=== PATIENT | male | born 1975 | race Caucasian/White ===

== ENCOUNTER 2016-07-25 07:50 | Emergency (ER) | payer SELFPAY ==
--- NOTE | 2016-07-25 08:01 | ERPHSYRPT ---
- History of Present Illness Time Seen by Provider: 07/25/16 08:01 Historian: patient Exam Limitations: no limitations Physician History: 41 y/o male comes to the ER with complaints of abdominal cramping, nausea, vomiting and diarrhea since Thursday. Pt also reports having substernal chest pain during this time. Pt describes the pain as sharp, intermittent, 6/10 and pt has not taken any pain meds. Pt mentions having over 10 episodes of vomiting and diarrhea. Pt arrives to the ER shaking with his last drink being last night. Pt denies any fever, chills, cough, shortness of breath, dizziness or palpitations. Timing/Duration: day(s) (3 days) Activities at Onset: none Quality: pressure Location: substernal Chest Pain Radiation: no radiation Severity of Pain-Max: moderate Severity of Pain-Current: moderate Modifying Factors: Improves With: nothing Associated Symptoms: denies symptoms Prior Chest Pain/Cardiac Workup: no prior chest pain Nitro Today/Relief: no nitro taken today Aspirin Treatment Today: no aspirin today Allergies/Adverse Reactions: coconut Allergy (Verified 07/25/16 08:02) Home Medications: No Reportable Medications [No Reported Medications] 07/25/16 [History] Hx Tetanus, Diphtheria Vaccination/Date Given: No Hx Influenza Vaccination/Date Given: No Hx Pneumococcal Vaccination/Date Given: No - Review of Systems Constitutional: No Fever, No Chills Eyes: No Symptoms Ears, Nose, & Throat: No Symptoms Respiratory: No Cough, No Dyspnea Cardiac: Chest Pain, No Edema, No Syncope Abdominal/Gastrointestinal: Abdominal Pain, Nausea, Vomiting, Diarrhea Genitourinary Symptoms: No Dysuria Musculoskeletal: No Back Pain, No Neck Pain Skin: No Rash Neurological: No Dizziness, No Focal Weakness, No Sensory Changes Psychological: No Symptoms Endocrine: No Symptoms All Other Systems: Reviewed and Negative - Past Medical History Pertinent Past Medical History: No - Past Surgical History Past Surgical History: No - Social History Smoking Status: Never smoker Exposure to second hand smoke: No Alcohol Use: Chronic Drug Use: none Patient Lives Alone: No - Physical Exam General Appearance: no apparent distress, alert Eye Exam: PERRL/EOMI, eyes nml inspection Ears, Nose, Throat Exam: normal ENT inspection, moist mucous membranes Neck Exam: normal inspection, non-tender, supple, full range of motion Respiratory Exam: normal breath sounds, lungs clear, No respiratory distress Cardiovascular Exam: regular rate/rhythm, normal heart sounds, normal peripheral pulses Gastrointestinal/Abdomen Exam: soft, normal bowel sounds, No tenderness, No mass Back Exam: normal inspection, No CVA tenderness, No vertebral tenderness Extremity Exam: normal inspection, normal range of motion Neurologic Exam: alert, oriented x 3, cooperative, normal mood/affect, sensation nml, No motor deficits Skin Exam: normal color, warm, dry - Course EKG Interpreted by Me: RATE, Sinus Rhythm, NORMAL AXIS, NORMAL INTERVALS, NORMAL QRS (HR 62) Ordered Tests: Active Orders 24 hr Category Date Time Status [employer] STAT Care 07/25/16 08:02 Active EKG-ER Only STAT Care 07/25/16 08:02 Active EKG-ER Only STAT Care 07/25/16 08:08 Inactive IV Insertion STAT Care 07/25/16 08:02 Active Pulse Oximetry (ED) STAT Care 07/25/16 08:02 Active CHEST 2 VIEWS (PA AND LAT) Stat Exams 07/25/16 08:10 Completed CBC W DIFF Stat Lab 07/25/16 08:13 Completed CMP Stat Lab 07/25/16 08:13 Completed Ethyl Alcohol,Urine Stat Lab 07/25/16 08:39 Results TROPONIN Stat Lab 07/25/16 08:13 Completed Urine Triage Profile Stat Lab 07/25/16 08:39 Completed Medication Summary Discontinued Medications Generic Name Dose Route Start Last Admin Trade Name Freq PRN Reason Stop Dose Admin Acetaminophen 1,000 mg 07/25/16 09:16 Tylenol Extra Strength 500 Mg PO 07/25/16 09:17 STAT ONE Aspirin 81 mg 07/25/16 08:11 07/25/16 08:25 Baby Aspirin 81 Mg Chew PO 07/25/16 08:12 81 mg STAT ONE Administration Aspirin Confirm 07/25/16 08:18 Baby Aspirin 81 Mg Chew Administered 07/25/16 08:19 Dose 81 mg .ROUTE .STK-MED ONE Sodium Chloride 1,000 mls @ 999 mls/hr 07/25/16 08:10 07/25/16 08:25 Sodium Chloride 0.9% 1000 Ml IV 07/25/16 09:10 999 mls/hr .Q1H1M STA Administration Sodium Chloride Confirm 07/25/16 08:18 Sodium Chloride 0.9% 1000 Ml Administered 07/25/16 08:19 Dose 1,000 mls @ ud .ROUTE .STK-MED ONE Ondansetron HCl 4 mg 07/25/16 08:10 07/25/16 08:25 Zofran 4 Mg/2 Ml Vial IV 07/25/16 08:11 4 mg STAT ONE Administration Ondansetron HCl Confirm 07/25/16 08:18 Zofran 4 Mg/2 Ml Vial Administered 07/25/16 08:19 Dose 4 mg .ROUTE .STK-MED ONE Lab/Rad Data: Laboratory Result Diagrams 07/25/16 08:13 07/25/16 08:13 Laboratory Results 07/25/16 07/25/16 07/25/16 Range/Units 08:39 08:39 08:13 WBC (4.0-10.5) K/mm3 RBC (4.1-5.6) M/mm3 Hgb (12.5-18.0) gm/dl Hct (42-50) % MCV (78-100) fl MCH (26-32) pg MCHC (32-36) g/dl RDW (11.5-14.0) % Plt Count (150-450) K/mm3 MPV (6-9.5) fl Gran % (36.0-66.0) % Lymphocytes % (24.0-44.0) % Monocytes % (0.0-12.0) % Eosinophils % (0.00-5.0) % Basophils % (0.0-0.4) % Basophils # (0-0.4) Sodium (136-145) mEq/L Potassium (3.5-5.1) mEq/L Chloride (98-107) mEq/L Carbon Dioxide (21-32) mEq/L Anion Gap (5-15) MEQ/L BUN (9-20) mg/dL Creatinine (0.55-1.30) mg/dl Estimated GFR ML/MIN Glucose (70-110) MG/DL Calcium (8.5-10.1) mg/dL Total Bilirubin (0.2-1.0) mg/dL AST (15-37) U/L ALT (12-78) U/L Alkaline Phosphatase (46-116) U/L Troponin I < 0.017 (0.000-0.056) ng/ml Serum Total Protein (6.4-8.2) gm/dL Albumin (3.4-5.0) g/dL Urine Opiates Level NEG. (NEGATIVE) Ur Methadone NEG. (NEGATIVE) Urine Barbiturates NEG. (NEGATIVE) Ur Phencyclidine (PCP) NEG. (NEGATIVE) Urine Amphetamine NEG. (NEGATIVE) U Benzodiazepine Level NEG. (NEGATIVE) Urine Cocaine NEG. (NEGATIVE) Urine Marijuana (THC) NEG. (NEGATIVE) Urine pH Pending Urine Ethyl Alcohol < 10 (0.00-20) mg/dl 07/25/16 07/25/16 Range/Units 08:13 08:13 WBC 5.1 (4.0-10.5) K/mm3 RBC 5.33 (4.1-5.6) M/mm3 Hgb 16.4 (12.5-18.0) gm/dl Hct 48.1 (42-50) % MCV 90.2 (78-100) fl MCH 30.8 (26-32) pg MCHC 34.1 (32-36) g/dl RDW 13.9 (11.5-14.0) % Plt Count 164 (150-450) K/mm3 MPV 10.3 H (6-9.5) fl Gran % 52.5 (36.0-66.0) % Lymphocytes % 27.5 (24.0-44.0) % Monocytes % 15.8 H (0.0-12.0) % Eosinophils % 4.0 (0.00-5.0) % Basophils % 0.2 (0.0-0.4) % Basophils # 0.01 (0-0.4) Sodium 139 (136-145) mEq/L Potassium 4.1 (3.5-5.1) mEq/L Chloride 102 (98-107) mEq/L Carbon Dioxide 25.1 (21-32) mEq/L Anion Gap 16.1 H (5-15) MEQ/L BUN 10 (9-20) mg/dL Creatinine 0.75 (0.55-1.30) mg/dl Estimated GFR > 60 ML/MIN Glucose 109 (70-110) MG/DL Calcium 9.5 (8.5-10.1) mg/dL Total Bilirubin 0.9 (0.2-1.0) mg/dL AST 94 H (15-37) U/L ALT 146 H (12-78) U/L Alkaline Phosphatase 89 (46-116) U/L Troponin I (0.000-0.056) ng/ml Serum Total Protein 8.2 (6.4-8.2) gm/dL Albumin 4.0 (3.4-5.0) g/dL Urine Opiates Level (NEGATIVE) Ur Methadone (NEGATIVE) Urine Barbiturates (NEGATIVE) Ur Phencyclidine (PCP) (NEGATIVE) Urine Amphetamine (NEGATIVE) U Benzodiazepine Level (NEGATIVE) Urine Cocaine (NEGATIVE) Urine Marijuana (THC) (NEGATIVE) Urine pH Urine Ethyl Alcohol (0.00-20) mg/dl - Progress Progress: improved Progress Note: 07/25/16 09:21 Pt feels better after receiving NS fluids and zofran. The cardiac w/u is within normal limits. The CXR is normal. Pt will be d/c home with a diagnosis of viral syndrome - Departure Time of Disposition: 09:22 Departure Disposition: Home Clinical Impression: Viral syndrome Condition: Stable Critical Care Time: No Instructions: Viral Syndrome Additional Instructions: Return to the ER if you should have worsening abdominal pain, chest pain, nausea , vomiting, diarrhea, fever or chills.
[2016-07-25 08:05] VITALS: O2SAT 98
[2016-07-25] MEDS ORDERED: Zofran 4 MG/2 ML VIAL IV ONE (08:10)
[2016-07-25] MEDS ORDERED: Sodium Chloride 0.9% 1000 ML 1,000 ML IV STA (08:10)
[2016-07-25] MEDS ORDERED: BABY ASPIRIN 81 MG CHEW PO ONE (08:11)
[2016-07-25 08:15] LABS: BASOPHIL % 0.2 % (0.0-0.4); Granulocytes % 52.5 % (36.0-66.0); Lymphocytes % 27.5 % (24.0-44.0); Mean Cell Volume 90.2 fl (78-100); Mean Corpuscular Hemoglobin 30.8 pg (26-32); Mean Platelet Volume 10.3 fl (6-9.5); Monocytes % 15.8 % (0.0-12.0); Platelet Count 164 K/mm3 (150-450); Red Blood Count 5.33 M/mm3 (4.1-5.6); Red Cell Distribution Width 13.9 % (11.5-14.0); White Blood Count 5.1 K/mm3 (4.0-10.5)
[2016-07-25] MEDS ORDERED: BABY ASPIRIN 81 MG CHEW ONE (08:18)
[2016-07-25] MEDS ORDERED: Zofran 4 MG/2 ML VIAL ONE (08:18)
[2016-07-25] MEDS ORDERED: Sodium Chloride 0.9% 1000 ML 1,000 ML ONE (08:18)
[2016-07-25 08:40] LABS: ALKALINE PHOSPHATASE 89 U/L (46-116); ANION GAP 16.1 MEQ/L (5-15); BILIRUBIN,TOTAL 0.9 mg/dL (0.2-1.0); BLOOD UREA NITROGEN 10 mg/dL (9-20); CHLORIDE 102 mEq/L (98-107); Carbon Dioxide 25.1 mEq/L (21-32); Glucose 109 MG/DL (70-110); Potassium 4.1 mEq/L (3.5-5.1); SGOT/AST 94 U/L (15-37); SGPT/ALT 146 U/L (12-78); SODIUM 139 mEq/L (136-145); Total Protein 8.2 gm/dL (6.4-8.2)
--- NOTE | 2016-07-25 09:04 | XRAY ---
Indication: Chest pain, nausea, vomiting,, fever, chills, and diarrhea. Comparison: None PA/lateral chest demonstrates right middle lobe subsegmental atelectasis/scarring. Remaining lungs clear. Heart and mediastinal structures within normal limits. Bony thorax intact with minimal spinal degenerative changes. Impression: Nonacute chest with chronic features.
[2016-07-25] MEDS ORDERED: TYLENOL EXTRA STRENGTH 500 MG PO ONE (09:16)
[2016-07-25] MEDS ORDERED: TYLENOL EXTRA STRENGTH 500 MG ONE (09:28)
[2016-07-25 09:48] VITALS: BP 168/98; PULSE 77
== END 2016-07-25 09:48 | disposition home or self-care (01) ==
LOC: ED 07:50
DX: B34.9 Viral infection, unspecified (principal); R10.9 Unspecified abdominal pain; R11.2 Nausea with vomiting, unspecified; R19.7 Diarrhea, unspecified; R07.89 Other chest pain
CPT/HCPCS: 36000; 36415; 71020; 80053; 80307; 80320; 83986; 84484; 85025; 93005; 93041; 96360; 96374; 99284; J2405